=== PATIENT | female | born 1985 | race Caucasian/White ===

== ENCOUNTER 2018-11-24 20:09 | Emergency (ER) | payer OTHER ==
[~2018-11-24] VITALS: Ht 157.5 cm; Wt 90.7 kg
[~2018-11-24 20:09] MED LIST: DEPOPROVER IM
[2018-11-24 20:10] VITALS: BP_SYST 155
[2018-11-24] MEDS ORDERED: IPRATROPIUM/ALBUTEROL SULFATE 3 ML AMPUL.NEB (DUONEB) INH ONE (20:30)
[2018-11-24] MEDS ORDERED: EPINEPHrine 1 MG/ML AMP IM ONE (20:30)
[2018-11-24] MEDS ORDERED: FAMOTIDINE 20 MG TABLET PO ONE (20:30)
[2018-11-24] MEDS ORDERED: methylPREDNISolone SOD SUCC/PF 62.5 MG/ML VIAL IM ONE (20:30)
[2018-11-24] MEDS ORDERED: DIPHENHYDRAMINE HCL 12.5 MG/5 ML UDC PO ONE (21:00)
[2018-11-24 21:45] VITALS: BP_SYST 131
== END 2018-11-24 21:45 | disposition home or self-care (01) ==
LOC: SED 20:09
DX: T78.09XA Anaphylactic reaction due to other food products, initial encounter (principal); X58.XXXA Exposure to other specified factors, initial encounter
CPT/HCPCS: 94640; 96372; 99283; J0171; J2930; J7620

== ENCOUNTER 2018-12-09 08:00 | Emergency (ER) | payer OTHER ==
[~2018-12-09] VITALS: Ht 157.5 cm; Wt 90.7 kg
[2018-12-09 08:02] VITALS: BP_SYST 148
[2018-12-09] MEDS ORDERED: DEXAMETHASONE SOD PHOSPHATE 10 MG/ML VIAL IVP ONE (08:15)
[2018-12-09 09:45] VITALS: BP_SYST 142
== END 2018-12-09 09:45 | disposition home or self-care (01) ==
LOC: SED 08:00
DX: T78.1XXA Other adverse food reactions, not elsewhere classified, initial encounter (principal); Z91.010 Allergy to peanuts; Z91.018 Allergy to other foods; X58.XXXA Exposure to other specified factors, initial encounter
CPT/HCPCS: 96374; 99283; J1100

== ENCOUNTER 2020-05-28 22:26 | Emergency (ER) | payer OTHER ==
[~2020-05-28] VITALS: Ht 157.5 cm; Wt 93.0 kg
[2020-05-28 22:30] VITALS: BP_SYST 160
[2020-05-28] MEDS: IBUPROFEN 800 MG TABLET PO ONE (22:57)
[2020-05-28] MEDS: CEPHALEXIN 125 MG/5 ML, 100 ML BTL PO ONE (22:58)
[2020-05-28] MEDS: ACYCLOVIR 400 MG TABLET PO SCH (22:58)
[2020-05-28] MEDS: HYDROcodone/ACETAMIN 5-325 MG TAB (NORCO/ VICODIN) PO ONE (22:59)
[2020-05-28] MEDS: cephALEXin 500 MG CAPSULE PO ONE (23:03)
[2020-05-28 23:12] VITALS: BP_SYST 160
[2020-05-28] MEDS ORDERED: cephALEXin 500 MG CAPSULE ONE (23:17)
== END 2020-05-28 23:15 | disposition home or self-care (01) ==
LOC: SED 22:26
DX: R21 Rash and other nonspecific skin eruption (principal); Z71.6 Tobacco abuse counseling; Z91.018 Allergy to other foods; Z91.013 Allergy to seafood
CPT/HCPCS: 99284

== ENCOUNTER 2022-09-10 21:52 | Emergency (ER) | payer OTHER ==
[~2022-09-10] VITALS: Ht 162.6 cm; Wt 90.7 kg
[2022-09-10 22:27] VITALS: BP_SYST 154
[2022-09-10] MEDS ORDERED: ONDANSETRON HCL 4 MG/2 ML VIAL IVP ONE (22:30)
[2022-09-10] MEDS ORDERED: MORPHINE 4 MG INJ. 4 MG/ML VIAL IVP ONE (22:30)
[2022-09-10] MEDS ORDERED: NACL 0.9% 1,000 ML IV ONE (22:30)
--- NOTE | 2022-09-10 22:34 | NUR ---
Pt placed to ER waiting room in stable condition. present.
[2022-09-10 22:57] LABS: BASOPHILS # (AUTO) 0.1 K/uL (0.0-0.2); BASOPHILS % (AUTO) 0.5 % (0.0-2.0); EOSINOPHILS # (AUTO) 0.1 K/uL (0.0-0.4); EOSINOPHILS % (AUTO) 0.8 % (0.0-4.0); HEMATOCRIT 40.4 % (36-48); HEMOGLOBIN 13.5 g/dL (12.0-16.0); LYMPHOCYTES # (AUTO) 3.1 K/uL (1.0-5.5); MEAN CORPUSCULAR HEMOGLOBIN 32 pg (27-31); MEAN CORPUSCULAR HGB CONC 33 % (32-36); MEAN CORPUSCULAR VOLUME 96 fL (79.0-98.0); MONOCYTES # (AUTO) 0.4 K/uL (0.0-1.0); MONOCYTES % (AUTO) 3.4 % (1.7-9.3); NEUTROPHILS # (AUTO) 8.2 K/uL (1.8-7.7); NEUTROPHILS % (AUTO) 69.3 % (40.0-70.0); PLATELET COUNT (AUTO) 327 K/uL (130-430); RED CELL DISTRIBUTION WIDTH 13.1 % (9.0-15.0); WHITE BLOOD COUNT (AUTO) 11.8 K/uL (4.8-10.8)
--- NOTE | 2022-09-10 22:57 | NUR ---
Pt placed to ER bed 04, to gown, report given to RICK Rodriguez.
[2022-09-10 22:58] LABS: BILIRUBIN,URINE NEGATIVE (NEGATIVE); BLOOD, URINE 3+ (NEGATIVE); COLOR,URINE YELLOW (YELLOW); GLUCOSE,URINE NEGATIVE (NEGATIVE); KETONES,URINE NEGATIVE (NEGATIVE); LEUKOCYTE ESTERASE ,URINE NEGATIVE (NEGATIVE); NITRITE, URINE NEGATIVE (NEGATIVE); PROTEIN URINE NEGATIVE (NEGATIVE); UROBILINOGEN,URINE 0.2 (0.2-1.0)
[2022-09-10 23:03] LABS: CLARITY/URINE SLIGHTLY HAZY (CLEAR)
[2022-09-10 23:11] LABS: BACTERIA,URINE FEW /HPF (None Seen); WBC,URINE 0-3 /HPF (0-3)
[2022-09-10 23:12] LABS: MUCUS,URINE None Seen /LPF (None Seen)
[2022-09-10 23:16] LABS: CALCIUM 8.7 mg/dL (8.4-11.0); CREATININE 0.56 mg/dL (0.55-1.30)
[2022-09-10 23:20] LABS: ALBUMIN 3.6 g/dL (3.4-4.8); TOTAL BILIRUBIN 0.2 mg/dL (0.0-1.0)
[2022-09-11] MEDS ORDERED: MORPHINE 4 MG INJ. 4 MG/ML VIAL IVP ONE (00:15)
[2022-09-11 02:34] VITALS: BP_SYST 138
--- NOTE | 2022-09-11 02:38 | NUR ---
Patient given written and verbal discharge instructions and verbalizes understanding. ER MD discussed with patient the results and treatment provided. Patient in stable condition. ID arm band removed. IV catheter removed intact and dressing applied, no active bleeding. Patient educated on pain management and to follow up with PMD. Opportunity for questions provided and answered.
== END 2022-09-11 02:20 | disposition home or self-care (01) ==
LOC: SED 21:52
DX: R10.11 Right upper quadrant pain (principal); K30 Functional dyspepsia; Z91.018 Allergy to other foods; Z91.010 Allergy to peanuts; Z91.013 Allergy to seafood; Z88.6 Allergy status to analgesic agent; Z79.899 Other long term (current) drug therapy
CPT/HCPCS: 99285; 96374; 76705; 96361; 80053; 81000; 83690; 85025; 87040; 36415; 83605; 96375; J2405; J2270 ×2; J7030